=== PATIENT | female | born 1940 | race Caucasian/White ===

== ENCOUNTER 2017-11-03 10:31 | Emergency (ER) | payer OTHER ==
[~2017-11-03] VITALS: Ht 165.1 cm; Wt 50.1 kg
[2017-11-03 10:34] VITALS: BP 167/74; PULSE 78; RESP 18; TEMP 97.4; O2SAT 98
[2017-11-03] MEDS ORDERED: SODIUM CHLORIDE 0.9% FLUSH 10 ML FLUSH IV FLUSH PRN (10:45)
[2017-11-03] MEDS ORDERED: CHOLESTEROL MED PO (10:47)
[2017-11-03] MEDS ORDERED: ASPI81CH7 CHEW (10:47)
[2017-11-03] MEDS ORDERED: RANI150T PO (10:47)
[2017-11-03 10:55] VITALS: O2SAT 98
[2017-11-03 10:59] LABS: AUTOMATED NEUTROPHIL # 3.4 TH/MM3 (1.8-7.7); BASOPHIL % 0.8 % (0.0-2.0); EOSINOPHIL # 0.3 TH/MM3 (0-0.4); EOSINOPHIL % 5.6 % (0.0-4.0); HEMOGLOBIN 12.9 GM/DL (11.6-15.3); LYMPHOCYTE # 1.2 TH/MM3 (1.0-4.8); MEAN CELL VOLUME 93.5 FL (80.0-100.0); MEAN CORPUSCULAR HEMOGLOBIN 30.9 PG (27.0-34.0); MONO % 8.6 % (0.0-8.0); MONOCYTE # 0.5 TH/MM3 (0-0.9); PLATELET COUNT 219 TH/MM3 (150-450); RED BLOOD COUNT 4.17 MIL/MM3 (4.00-5.30); RED CELL DISTRIBUTION WIDTH 13.8 % (11.6-17.2); WHITE BLOOD COUNT 5.4 TH/MM3 (4.0-11.0)
[2017-11-03 11:06] LABS: CHLORIDE 106 MEQ/L (98-107); SODIUM (NA) 140 MEQ/L (136-145)
[2017-11-03 11:11] LABS: ALBUMIN 3.5 GM/DL (3.4-5.0); BICARBONATE 29.8 MEQ/L (21.0-32.0); CALCIUM 9.5 MG/DL (8.5-10.1); GLUCOSE,RANDOM 89 MG/DL (74-106); PROTHROMBIN TIME - PATIENT 9.9 SEC (9.8-11.6)
[2017-11-03 11:12] LABS: BLOOD UREA NITROGEN 24 MG/DL (7-18)
[2017-11-03 11:14] LABS: ALT (GPT) 32 U/L (10-53); AST (GOT) 40 U/L (15-37)
[2017-11-03 11:15] LABS: CREATININE 0.83 MG/DL (0.50-1.00); GLOMERULAR FILTRATION RATE 66 ML/MIN (>89)
[2017-11-03 11:16] LABS: TOTAL BILIRUBIN ADULT 0.4 MG/DL (0.2-1.0); TOTAL PROTEIN 6.6 GM/DL (6.4-8.2)
[2017-11-03 11:17] LABS: ALKALINE PHOSPHATASE 73 U/L (45-117)
--- NOTE | 2017-11-03 11:50 | PD ---
HPI Chief Complaint: GI Complaint Time Seen by Provider: 10:38 Travel History International Travel<30 days: No Contact w/Intl Traveler<30days: No Traveled to known affect area: No History of Present Illness HPI 77-year-old female presents emergency department for evaluation of GI bleeding. The patient had an endoscopy this week with Dr. Miller, she had a few small polyps removed with pathology still present. She was referred here from Dr. Miller's office because the patient had noticed some blood in her stool as well as some blood on the toilet paper this morning. Patient states she had 2 episodes movements like this. She describes very small amounts of blood with a few drops in the toilet and just some drops on the toilet paper. No passage of clots. No abdominal pain no weakness no nausea no vomiting. Symptoms are mild , context as above, associated signs symptoms as above, duration as above PFSH Past Medical History High Cholesterol: Yes GERD: Yes Tetanus Vaccination: > 5 Years Influenza Vaccination: Yes ?: Not Past Surgical History Surgical History: No Previous Surgery Social History Alcohol Use: No Tobacco Use: No (QUIT 1999) Substance Use: No Allergies-Medications (Allergen,Severity, Reaction): Coded Allergies: No Known Allergies (Unverified , 11/03/17) Reported Meds & Prescriptions Reported Meds & Active Scripts Active Reported [Cholesterol Med] 5 Mg PO DAILY Aspirin Children's (Aspirin) 81 Mg Chew 81 Mg CHEW DAILY Ranitidine (Ranitidine HCl) 150 Mg Tab 150 Mg PO DAILY Review of Systems Except as stated in HPI: all other systems reviewed are Neg Physical Exam Narrative GENERAL: Well-developed well-nourished no obvious distress SKIN: Focused skin assessment warm/dry. HEAD: Atraumatic. Normocephalic. EYES: Pupils equal and round. No scleral icterus. No injection or drainage. ENT: No nasal bleeding or discharge. Mucous membranes pink and moist. NECK: Trachea midline. No JVD. CARDIOVASCULAR: Regular rate and rhythm. No murmur appreciated. RESPIRATORY: No accessory muscle use. Clear to auscultation. Breath sounds equal bilaterally. GASTROINTESTINAL: Abdomen soft, non-tender, nondistended. Hepatic and splenic margins not palpable. RECTAL: Deferred by patient MUSCULOSKELETAL: No obvious deformities. No clubbing. No cyanosis. No edema. NEUROLOGICAL: Awake and alert. No obvious cranial nerve deficits. Motor grossly within normal limits. Normal speech. PSYCHIATRIC: Appropriate mood and affect; insight and judgment normal. Data Data Last Documented VS Vital Signs Date Time Temp Pulse Resp B/P (MAP) Pulse Ox O2 Delivery O2 Flow Rate FiO2 11/03/17 12:48 11/03/17 12:09 67 16 96 Room Air 11/03/17 10:34 97.4 Orders Orders Complete Blood Count With Diff (11/03/17 10:38) Comprehensive Metabolic Panel (11/03/17 10:38) Prothrombin Time / Inr (Pt) (11/03/17 10:38) Act Partial Throm Time (Ptt) (11/03/17 10:38) Iv Access Insert/Monitor (11/03/17 10:38) Ecg Monitoring (11/03/17 10:38) Oximetry (11/03/17 10:38) Sodium Chloride 0.9% Flush (Ns Flush) (11/03/17 10:45) Ed Discharge Order (11/03/17 12:18) Labs Laboratory Tests Test 11/03/17 10:50 White Blood Count 5.4 TH/MM3 Red Blood Count 4.17 MIL/MM3 Hemoglobin 12.9 GM/DL Hematocrit 39.0 % Mean Corpuscular Volume 93.5 FL Mean Corpuscular Hemoglobin 30.9 PG Mean Corpuscular Hemoglobin Concent 33.0 % Red Cell Distribution Width 13.8 % Platelet Count 219 TH/MM3 Mean Platelet Volume 9.0 FL Neutrophils (%) (Auto) 63.0 % Lymphocytes (%) (Auto) 22.0 % Monocytes (%) (Auto) 8.6 % Eosinophils (%) (Auto) 5.6 % Basophils (%) (Auto) 0.8 % Neutrophils # (Auto) 3.4 TH/MM3 Lymphocytes # (Auto) 1.2 TH/MM3 Monocytes # (Auto) 0.5 TH/MM3 Eosinophils # (Auto) 0.3 TH/MM3 Basophils # (Auto) 0.0 TH/MM3 CBC Comment DIFF FINAL Differential Comment Prothrombin Time 9.9 SEC Prothromb Time International Ratio 1.0 RATIO Activated Partial Thromboplast Time 22.3 SEC Blood Urea Nitrogen 24 MG/DL Creatinine 0.83 MG/DL Random Glucose 89 MG/DL Total Protein 6.6 GM/DL Albumin 3.5 GM/DL Calcium Level 9.5 MG/DL Alkaline Phosphatase 73 U/L Aspartate Amino Transf (AST/SGOT) 40 U/L Alanine Aminotransferase (ALT/SGPT) 32 U/L Total Bilirubin 0.4 MG/DL Sodium Level 140 MEQ/L Potassium Level 4.2 MEQ/L Chloride Level 106 MEQ/L Carbon Dioxide Level 29.8 MEQ/L Anion Gap 4 MEQ/L Estimat Glomerular Filtration Rate 66 ML/MIN MDM Medical Decision Making Medical Screen Exam Complete: Yes Emergency Medical Condition: Yes Differential Diagnosis Postoperative GI bleeding, anemia, hypovolemia is been excluded clinically, high volume GI bleeding is excluded clinically Narrative Course Patient room to the emergency department, deferred a rectal exam but she showed me pictures on her cell phone that showed just a few small drops of blood in the toilet bowl. She has no symptoms to suggest hypovolemia. She is deferred rectal exam but she has not had any stool while in the emergency department not had any bleeding while in the emergency department. Her labs are reassuring with hemoglobin 13. She was discussed very briefly with the GI doctor restoration technician for Dr. Miller's office, she is stable for discharge and he agrees. At this time the patient was urged to follow-up with primary care physician for a checkup as well as her GI doctor as scheduled. Diagnosis Primary Impression: GI bleeding Referrals: Beronica Miller MD Patient Instructions: Gastrointestinal Bleeding (DC), General Instructions Disposition: 01 DISCHARGE HOME Condition: Stable Andres Mark MD Nov 03, 2017 11:50
[2017-11-03 12:09] VITALS: BP 135/74; PULSE 67; RESP 16; O2SAT 96
== END 2017-11-03 12:52 | disposition home or self-care (01) ==
LOC: PHED 10:31
DX: K92.2 Gastrointestinal hemorrhage, unspecified (principal); E78.00 Pure hypercholesterolemia, unspecified; K21.9 Gastro-esophageal reflux disease without esophagitis; Z87.891 Personal history of nicotine dependence; Z79.899 Other long term (current) drug therapy; Z98.890 Other specified postprocedural states
CPT/HCPCS: 80053; 85025; 85610; 85730; 99283